=== PATIENT | female | born 1955 | race Caucasian/White ===

== ENCOUNTER 2018-05-13 13:31 | Outpatient (CLI) | payer OTHER | END 2018-05-13 13:43 | disposition home or self-care (01) | LOC: SONOGRAMA 13:31 | DX: R10.11 Right upper quadrant pain (principal); I10 Essential (primary) hypertension; M54.5 Low back pain; E03.8 Other specified hypothyroidism; E78.89 Other lipoprotein metabolism disorders; E11.51 Type 2 diabetes mellitus with diabetic peripheral angiopathy without gangrene; E55.9 Vitamin D deficiency, unspecified; E64.9 Sequelae of unspecified nutritional deficiency; N39.0 Urinary tract infection, site not specified; E78.2 Mixed hyperlipidemia; Z11.3 Encounter for screening for infections with a predominantly sexual mode of transmission; M79.7 Fibromyalgia ==

== ENCOUNTER 2018-11-18 06:30 | Day surgery (SDC) | payer OTHER | END 2018-11-18 10:40 | disposition home or self-care (01) | LOC: AMB-ENDOS 06:30 | DX: D13.2 Benign neoplasm of duodenum (principal) ==

== ENCOUNTER 2020-10-26 15:33 | Emergency (ER) | payer OTHER ==
[~2020-10-26] VITALS: Ht 167.6 cm; Wt 68.0 kg
[2020-10-26] MEDS ORDERED: EFFEXOR XR150 MG PO (16:01)
[2020-10-26] MEDS ORDERED: SYNTHROID88 MCG PO (16:01)
[2020-10-26] MEDS ORDERED: CLONAZEPAM1 MG PO (16:02)
[2020-10-26] MEDS ORDERED: PAXIL20 MG (16:02)
[2020-10-26] MEDS ORDERED: TOPROL XL25 M1 (16:03)
[2020-10-26] MEDS ORDERED: RESTORIL15 M1 PO (16:03)
== END 2020-10-26 22:51 | disposition home or self-care (01) ==
LOC: ER 15:33
DX: N20.0 Calculus of kidney (principal); R10.31 Right lower quadrant pain